=== PATIENT | female | born 2005 | race Caucasian/White ===

== ENCOUNTER 2024-10-30 13:23 | Emergency (ER) | payer BC ==
[2024-10-30 14:09] LABS: Glucose, Urine (Dipstick) Normal (Negative); Leukocyte Negative (Negative); Protein, Urine (Dipstick) 15 mg/dl (Neg-Trace); Specific Gravity, Urine 1.010 (1.005-1.030)
[2024-10-30 14:10] LABS: Pregnancy Test - Urine (BHCG) Negative (Negative); Pregu Control Background? CLEAR/WHITE (CLR/WHITE); Pregu Control Bar Appear? YES (CONTROL BAR)
[2024-10-30 14:24] LABS: Bacteria/HPF None Seen HPF (None Seen); CAUTI Indications for Culture Pelvic or flank pain; RBC/HPF None Seen HPF (0-3); Urine Culture Reflex No No; WBC/HPF None Seen HPF (0-3)
[2024-10-30] MEDS ORDERED: Ketorolac Tromethamine 30 MG (1 mL) VIAL ONE (14:42)
== END 2024-10-30 16:30 | disposition home or self-care (01) ==
LOC: CSHERS 13:23
DX: R10.9 Unspecified abdominal pain (principal)
CPT/HCPCS: 74176; 81001; 81025; 96372; J1885